=== PATIENT | female | born 1960 | race Caucasian/White ===

== ENCOUNTER 2024-09-08 11:51 | Emergency (ER) | payer BC, SELFPAY ==
[2024-09-08 11:54] VITALS: BP 106/83
[2024-09-08 12:11] LABS: % Basophils 0.8 % (0-2); % Eosinophils 1.9 % (0-6); % Immature Granulocytes 0.2 % (0-0.5); % Lymphocytes 24.8 % (20.5-51.1); % Monocytes 7.5 % (1.7-9.3); % Neutrophils 64.8 % (42.2-75.2); Absolute Basophils 0.1 10^3/uL (0-0.2); Absolute Eosinophils 0.2 10^3/uL (0-0.7); Absolute Lymphocytes 2.4 10^3/uL (1.2-3.4); Absolute Monocytes 0.7 10^3/uL (0.1-0.6); Absolute Neutrophils 6.2 10^3/uL (1.4-6.5); Hematocrit 43.6 % (37.0-47.0); Hemoglobin 14.9 g/dL (12.0-16.0); Mean Corp Hgb Conc. 34.2 g/dL (33.0-37.0); Mean Corpuscular Hgb 30.1 pg (27.0-31.0); Mean Corpuscular Volume 88.1 fL (81.0-99.0); Mean Platelet Volume 10.7 fL (7.4-10.4); Nucleated Red Blood Cells % 0 %; Platelet Count 255 10^3/uL (130-400); Red Blood Cell Count 4.95 10^6/uL (4.20-5.40); Red Cell Dist. Width 12.7 % (11.5-14.5); White Blood Cell Count 9.6 10^3/uL (4.8-10.8)
[2024-09-08 12:25] LABS: ALT (SGPT) 20 U/L (0-35); AST (SGOT) 29 U/L (14-36); Albumin 4.4 g/dl (3.5-5.0); Alkaline Phosphatase 78 U/L (38-126); Blood Urea Nitrogen 12 mg/dl (7-17); Calcium 9.2 mg/dl (8.4-10.2); Carbon Dioxide 23 mmol/L (22-30); Chloride 101 mmol/L (98-107); Glucose 114 mg/dl (70-99); Lipase 80 U/L (23-300); Potassium 3.8 mmol/L (3.5-5.1); Sodium 138 mmol/L (135-145); Total Bilirubin 0.6 mg/dl (0.2-1.3); Total Protein 6.9 g/dl (6.3-8.2); eGFR > 60.00
--- NOTE | 2024-09-08 13:16 | ED.GENMED ---
History of Present Illness
General
Chief Complaint: Abdominal Pain
Source: patient
Exam Limitations: none
Time Seen by Provider: 09/08/24 13:08
History of Present Illness
History of Present Illness:
63yoF with a history of migraines and endometriosis presenting for evaluation of abdominal pain. Symptoms began around 8am this morning when she was getting up for the day. The pain is constant but waxing and waning. She states the pain feels like
child . The pain is located throughout the lower abdomen and radiates to the low back. She had similar pain about 25 years ago while she was which was self-resolving. She denies any fevers, chills, nausea, vomiting, diarrhea,
constipation, dysuria, chest pain, shortness of breath. Previous abdominal surgeries include a laparoscopy for endometriosis.
Past History
Past History
ED Past Medical History: Other (Migraine headaches)
ED Past Surgical History: Tonsilectomy and Other (Breast augmentation)
Social History
Tobacco: Non-smoker
Alcohol: None
Personal:
Living: with roommate
Employment: Not employed
Family History
Family History: Other (Noncontributory)
Phy Exam
Physical Exam
Physical Exam:
Appears uncomfortable, clutching abdomen
General Physical Exam
General Skin: warm and dry
General Habitus: normal
General Mental: alert
ENT Exam
ENT Exam: normocephalic
Cardiovascular Exam
Cardiovascular Exam: regular rate/rhythm
Pulmonary Exam
Pulmonary Exam: lungs clear, no respiratory distress, no rales, no crackles and no rhonchi
Gastrointestinal Exam
Gastrointestinal Exam: soft, non distended and other (+Generalized abdominal tenderness, worse in the suprapubic region. Abdomen soft, non-distended. No rebound tenderness. )
Neurological Exam
Neurological Exam: alert
[place] Coma Scale
Eye Opening: Spontaneous
Verbal Response: Oriented
Motor Response: Obeys Commands
GCS Total Score: 15
Skin Exam
Skin Exam: normal color and warm/dry
Course
Orders/Labs/Results
Orders:
Orders
09/08/24 12:01
Complete Blood Count/With Diff Urgent
Comprehensive Metabolic Panel Urgent
Lipase Urgent
09/08/24 13:15
0.9% Sodium Chloride 1000 ml [Nss] 1,000 ml IV BOLUS
HYDROmorphone [Dilaudid] 0.5 mg IV NOW STA
Iohexol [Omnipaque] See Protocol PO NOW STA
Ketorolac [Toradol] 15 mg IV NOW STA
09/08/24 13:16
CT Abd/pel W Iv And Oral Contr Urgent
Comment:
Reason For Exam: Lower abd pain radiating to back
09/08/24 13:41
Lactate Level [Lactic Acid] Urgent
09/08/24 14:10
0.9% Sodium Chloride 1000 ml [Nss] 1,000 ml IV BOLUS
09/08/24 15:02
Urinalysis Reflex To Culture Urgent
Date Specimen was Collected: 09/08/24
Time Specimen was Collected: 14:57
09/08/24 16:30
Lactate Level [Lactic Acid] Urgent
Abnormal Lab Results
09/08/24 09/08/24
12:01 13:41
MPV 10.7 H fL
(7.4-10.4)
Absolute Monos (auto) 0.7 H 10^3/uL
(0.1-0.6)
Creatinine 0.5 L mg/dL
(0.6-1.0)
Glucose 114 H mg/dl
(70-99)
Lactic Acid 3.4 H mmol/L
(0.7-2.0)
09/08/24 12:01
09/08/24 12:01
Vital Signs
Initial and Last Documented VS:
Initial Vital Signs
Pulse Resp BP Pulse Ox
88 18 106/83 100
09/08/24 11:54 09/08/24 11:54 09/08/24 11:54 09/08/24 11:54
Last Documented Vital Signs
Temp Pulse Resp BP Pulse Ox
98.9 F 66 13 106/64 99
09/08/24 13:42 09/08/24 17:00 09/08/24 17:00 09/08/24 17:00 09/08/24 16:28
MDM/Problems Addressed
Differential Diagnosis Includes:
63yoF here with lower abd pain that began this morning. Radiates to the lower back. Feels like child . Otherwise asymptomatic. VSS. She appears uncomfortable but is non-toxic. No signs of peritonitis on abdominal exam. Differential diagnosis
includes but is not limited to: kidney stone, diverticulitis, appendicitis, perforated viscous, gastroenteritis
Initial ED plan: Abdominal labs obtained in triage. Labs overall unremarkable including normal white count, renal function, LFTs. Will check lactate and CT abdomen with IV/PO contrast. IV Dilaudid, Toradol, and fluid bolus for symptoms.
*Critical Care Note
Total Time (30-74mins, 75-104mins- exclusive of procedures): Not Applicable
Update Note
Update Note:
Lactate 3.4. Second IV fluid bolus ordered. CT abdomen is negative for acute findings. Repeat lactate obtained after fluids which normalized. Patient reassessment multiple times and symptoms have completely resolved. Vitals remain stable. No
indication for hospitalization at this time. Unclear etiology of symptoms. Will refer to GI for f/u. Strict ED return precautions discussed. Patient and in agreement with plan. Patient discharged in stable condition.
ED Attending Note
-
Portions of this chart may have been created with voice recognition software.� Occasional wrong word or��sound alike� substitutions may have occurred due to the inherent limitations of voice recognition software.
Discharge Plan
Departure
Patient Disposition: Home (Routine Discharge)
Date of Disposition: 09/08/24
Time of Disposition: 17:24
Patient with high blood pressure during this ER visit?: No
Discharge Problem:
Nonspecific abdominal pain
Instructions: Abdominal Pain
Prescriptions:
No Action
magnesium
PRN PRN (Reason: MARCUS)
Referrals:
Bassem Hatch MD [Active] -
Elin Carlisle DO [Family Provider] -
Activity Restrictions/Additional Instructions:
Please call on Wednesday to schedule a follow-up appointment with your family doctor and gastroenterology. Return to the ER immediately with any new or worsening symptoms.
Interventions
Interventions:
*Risk Screen - Suicide Last Done: 09/08/24 11:54
*General Assessment Last Done: 09/08/24 11:54
*Neglect/Abuse Screening Last Done: 09/08/24 14:00
ED- Fall Risk Assessment Last Done: 09/08/24 14:00
*ED COVID-19 Vaccine History Last Done: 09/08/24 11:54
*Nursing Disposition Last Done: 09/08/24 18:44
BI-Jacueg-Dxuorffryh Assessment Last Done: 09/08/24 14:00
Discharge Date and Time
Discharge Date/Time: 09/08/24 18:45
Print Language: BURKIN[place]
[2024-09-08] MEDS: TORADOL 15 MG IV (13:26)
[2024-09-08] MEDS: NSS 1000 IV ×2 (13:26→14:36)
[2024-09-08] MEDS: OMNIPAQUE 50 ML PO (13:26)
[2024-09-08] MEDS: DILAUDID 0.5 MG IV (13:27)
[2024-09-08 14:00] VITALS: BP 110/59
[2024-09-08 14:06] LABS: Lactic Acid 3.4 mmol/L (0.7-2.0)
[2024-09-08 15:09] LABS: Urine Albumin Negative (Neg - Trace); Urine Bilirubin Negative (Negative); Urine Character Clear (Clear); Urine Color Yellow; Urine Glucose Negative (Negative); Urine Ketone Negative (Negative); Urine Leukocyte Negative (Negative); Urine Nitrite Negative (Negative); Urine Occult Blood Negative (Negative); Urine Specific Gravity 1.015 (<1.030); Urine Urobilinogen Negative (Neg - 1+)
[2024-09-08 16:26] VITALS: BMI 21.8
[2024-09-08 16:59] LABS: Lactic Acid 1.5 mmol/L (0.7-2.0)
[2024-09-08 17:00] VITALS: BP 106/64
== END 2024-09-08 18:45 | disposition home or self-care (01) ==
LOC: EMR 11:51
PROVIDERS: Physician Assistant; Student in an Organized Health Care Education/Training Program; EMERGENCY PHYSICIAN Student in an Organized Health Care Education/Training Program; FAMILY PHYSICIAN Family Medicine
DX: R10.30 Lower abdominal pain, unspecified (principal); Z87.42 Personal history of other diseases of the female genital tract
CPT/HCPCS: 96374; 96375; 96361; 99284; 74177; 80053; 81003; 83605; 83690; 85025; Q9967

== ENCOUNTER → 2024-12-28 10:31 | Outpatient (REF) | payer BC, SELFPAY | LOC: HWWDC 10:31 | PROVIDERS: ATTENDING PHYSICIAN Family Medicine | DX: Z12.31 Encounter for screening mammogram for malignant neoplasm of breast (principal) | CPT/HCPCS: 77063; 77067 ==

== ENCOUNTER → 2025-01-18 10:34 | Outpatient (REF) | payer BC, SELFPAY | LOC: WDC 10:34 | PROVIDERS: ATTENDING PHYSICIAN Family Medicine | DX: Z12.31 Encounter for screening mammogram for malignant neoplasm of breast (principal) | CPT/HCPCS: 77065 ==

== ENCOUNTER 2025-08-22 07:26 | Outpatient (RCR) | payer BC, SELFPAY | END 2025-08-22 23:59 | disposition home or self-care (01) | LOC: RPT 07:26 | PROVIDERS: ATTENDING PHYSICIAN Obstetrics & Gynecology; FAMILY PHYSICIAN Family Medicine | DX: N81.2 Incomplete uterovaginal prolapse (principal); N39.3 Stress incontinence (female) (male); N95.8 Other specified menopausal and perimenopausal disorders; Z73.6 Limitation of activities due to disability; R35.0 Frequency of micturition; R39.15 Urgency of urination; M25.552 Pain in left hip; M54.50 Low back pain, unspecified; M62.81 Muscle weakness (generalized) | CPT/HCPCS: 97110; 97112; 97161; 97530 ==